=== PATIENT | female | born 1995 | race Caucasian/White ===

== ENCOUNTER → 2017-12-19 11:58 | Outpatient (CLI) | payer OTHER, SELFPAY ==
[2017-12-19 14:38] LABS: Chlamydia Trachomatis by PCR Negative (Negative); Neisserai gonorrhoeae by PCR Negative (Negative); Probe Check PASS; Sample Adequacy Control PASS; Specimen Processing Control PASS
[2017-12-25 14:38] LABS: HPV Reflexed? NOT INDICATED
== END ==
PROVIDERS: Visit Provider Obstetrics & Gynecology
DX: Z12.72 Encounter for screening for malignant neoplasm of vagina (principal); Z11.3 Encounter for screening for infections with a predominantly sexual mode of transmission
CPT/HCPCS: 87491; 87591; 88175; G0145

== ENCOUNTER 2020-06-17 15:53 | Outpatient (RCR) | payer MEDICARE, MEDICAID, SELFPAY ==
[2016-10-24 06:10] VITALS: BMI 26.1
== END 2020-08-10 23:59 ==
LOC: IMMUN 15:53
PROVIDERS: PCP Family Medicine; Referring Provider Family Medicine; Visit Provider Family Medicine
DX: Z23 Encounter for immunization (principal)
CPT/HCPCS: 0001A; 0002A; 91300

== ENCOUNTER 2022-09-09 11:55 | Emergency (ER) | payer OTHER, SELFPAY ==
[2022-09-09 11:57] VITALS: BP 121/77; PULSE 67; RESP 16; TEMP 36.6; O2SAT 100; BMI 25.4
--- NOTE | 2022-09-09 12:18 | ED.VIS.CHEST ---
HPI <LUZ Turk - Last Filed: 09/09/22 21:00> History of Present Illness Chief Complaint: Chest Other Narrative Narrative: Patient presenting today with pain in her left armpit that she has had for the past year intermittently. She describes it as a dull ache that is not worsened with exertion, she has not found anything that makes it worse/better. She reports that this morning she noticed that the pain was worse and had pain in her left shoulder and wanted to come in to be evaluated. She also reports intermittent epigastric pain for the past few months but is not having that now. She reports feeling slightly nauseous and shaky this morning but that has also passed. She denies a PMH of any chronic health conditions. She denies a history of blood clots, recent surgery/procedures, recent travel, recent immobilization. She is on oral control. She denies any shortness of breath. PFSH <LUZ Turk - Last Filed: 09/09/22 21:00> PFSH Medical History no medical history Home Medications Control 1 tab PO DAILY 10/24/16 [History Last Taken Unknown] Allergy/AdvReac Type Severity Reaction Status Date / Time No Known Allergies Allergy Verified 09/09/22 11:57 Surgical History no surgical history Social History Smoking Status: Never smoker ROS <LUZ Turk - Last Filed: 09/09/22 21:00> ROS ED Constitutional Constitutional ED: Denies chills, fever(s) or sweats Cardiovascular Cardiovascular: Denies chest pain or palpitations Respiratory/Chest Respiratory/Chest: Denies cough or dyspnea Gastrointestinal Gastrointestinal: Denies abdominal pain, nausea or vomiting Musculoskeletal Musculoskeletal: Reports arthralgias and myalgias Integumentary Denies abscess, Abrasions or rash Neurologic Neurologic: Denies paresthesias or weakness EXAM <LUZ Turk - Last Filed: 09/09/22 21:00> Physical Exam Const Vital Signs: 09/09/22 11:57 09/09/22 11:56 09/09/22 13:21 Temperature 97.8 F Temperature Source Temporal Pulse Rate 67 76 Respiratory Rate 16 16 Respiratory Effort Normal Non-Labored Respiratory Pattern Normal Blood Pressure 121/77 H 113/65 Blood Pressure Mean 91 81 Pulse Ox 100 100 Oxygen Delivery Method Room Air Room Air Positive well nourished, well developed and no apparent distress General Appearance ED: well developed HEENT Reports normocephalic and head/scalp atraumatic Mouth ED: Yes moist mucous membranes normal Eyes PERRL and EOMs intact bilaterally Neck full ROM and supple Chest Wall inspection of chest normal Chest Narrative: Palpation of left sided chest tender. Resp normal respiratory effort and clear to auscultation bilaterally Cardio regular rate and regular rhythm GI soft to palpation, non-tender, non-distended and no masses Back/Spine normal ROM and normal to inspection Extremity normal to inspection and full ROM Extremity Narrative: Pain to palpation to the left axilla. Neuro oriented x3, CN's II-XII intact bilaterally, moves all extremities, no focal motor deficits and no sensory deficits noted Sensorium / Orientation: awake and alert Psych mental status grossly normal and thought process normal Skin no rashes or lesions noted and no wounds <Dr. Franics Irwin MD - Last Filed: 09/09/22 15:06> Physical Exam Const Vital Signs: 09/09/22 11:57 09/09/22 11:56 09/09/22 13:21 Temperature 97.8 F Temperature Source Temporal Pulse Rate 67 76 Respiratory Rate 16 16 Respiratory Effort Normal Non-Labored Respiratory Pattern Normal Blood Pressure 121/77 H 113/65 Blood Pressure Mean 91 81 Pulse Ox 100 100 Oxygen Delivery Method Room Air Room Air [facility] <LUZ Turk - Last Filed: 09/09/22 21:00> [facility] Narrative Medical decision making narrative: Patient presenting today with pain to her left axilla that she has had intermittently for a year. She does have pain to palpation to her chest as well as to her left axilla, consistent with costochondritis. However, chest x-ray obtained to rule out cardiopulmonary abnormality and is negative for any acute findings. She is well-appearing and in no acute distress. Vitals are unremarkable. I have encouraged her to trial anti-inflammatories for her pain and to follow-up with her PCP. She has been given return instructions will be discharged home in stable condition. I feel that this is more of a muscular pain or costochondritis. My independent interpretation the patient's single view AP chest x-ray shows no acute process. Cardiac silhouette is normal. No pneumothorax infiltrate. I do not see any acute bony abnormality. Final reading is normal x-ray examination of the chest. Radiography Diagnostic Testing: Clinical Impression(s) from Imaging Studies Chest X-Ray 09/09/22 13:40 IMPRESSION: Normal x-ray examination of the chest. Electronically Signed: Gary Bojorquez MD at 14:05 EDT , <Dr. Francis Irwin MD - Last Filed: 09/09/22 15:06> [facility] Narrative Medical decision making narrative: My independent interpretation the patient's single view AP chest x-ray shows no acute process. Cardiac silhouette is normal. No pneumothorax infiltrate. I do not see any acute bony abnormality. Final reading is normal x-ray examination of the chest. Radiography Diagnostic Testing: Clinical Impression(s) from Imaging Studies Chest X-Ray 09/09/22 13:40 IMPRESSION: Normal x-ray examination of the chest. Electronically Signed: Gary Bojorquez MD at 14:05 EDT , Treatment and Re-Evaluation :: I have personally performed a face to face assessment of the patient and have reviewed the ABHAY Note. I performed a substantive portion of the visit including all aspects of the following. My cote findings include: History: Patient presents with a focal area of pain in her left anterior axilla that has been there for about a year. She states some weeks it is worse than others. She does do a lot of lifting. It is sore with use and pressing on it. Not short of breath coughing. No radiation. No numbness tingling. She has never felt a mass or swollen area or noted skin changes. She has lost about 90 pounds over the last year but this was intentional. The symptoms have not changed with this weight loss and they existed prior to it. Exam: No acute distress comfortable. Lungs are completely clear. No pain with a deep breath. No tachypnea. She is not hypoxic as she has 100% saturation on room air. Heart is regular. Not tachycardic. Normal distal pulses. There is no skin mass lesion but there is tenderness Medical Decision Making: This really sounds musculoskeletal. Is been there for an extended period of time. This does not at all sound like pulmonary embolus or heart disease. Her sole risk for pulmonary embolus is being on control but she is not tachypneic tachycardic or hypoxic and her symptoms are reproducible with palpation and motion and have been there for a year. I do not think she needs blood work or CTA looking for this. We did do a plain film chest x-ray to make sure we do not see any marked bony abnormality or calcified lesion. This was normal. Discharge Plan Triage Chief Complaint: Chest Other ED Midlevel Provider: Kateryna Watt ED Provider: Francis Irwin Dx/Rx/DC Orders Clinical Impression: Chest wall pain Instructions: ED Chest Wall Pain, Costochondritis Prescriptions: No Action Control 1 tab PO DAILY Primary Care Provider: Tavo Cho Referrals: Cade Osullivan DO [Med Staff - Screenplay Writer] - 3-5 Days Activity Restrictions/Additional Instructions: Please follow-up with your PCP and return for any worsening of your symptoms. Disposition Disposition: Home, Self Care Discharge Date/Time: 09/09/22 14:25
[2022-09-09 13:21] VITALS: BP 113/65; PULSE 76; RESP 16; O2SAT 100
--- NOTE | 2022-09-09 13:40 | RAD_ITS ---
STUDY: X-RAY CHEST REASON FOR EXAM: Female, 26 years old. CP TECHNIQUE: Single AP portable view of the chest. COMPARISON: None. FINDINGS: The lungs are clear and expanded. There is no demonstrated pleural abnormality. Normal size heart. Normal mediastinum and nancy. Normal visualized pulmonary arteries. Normal visualized aortic arch and descending thoracic aorta. Normal visualized thoracic spine. Normal visualized ribs, clavicles, and shoulders. There is no demonstrated abnormality of the visualized soft tissue structures of the upper abdomen. RAD/Chest 1 View (Portable) IMPRESSION: Normal x-ray examination of the chest. Electronically Signed: Gary Bojorquez MD at 14:05 EDT ,
== END 2022-09-09 14:25 | disposition home or self-care (01) ==
PROVIDERS: Emergency Provider Emergency Medicine; PCP Family Medicine; Visit Provider Emergency Medicine
DX: R07.89 Other chest pain (principal); M79.622 Pain in left upper arm; M25.512 Pain in left shoulder; Z79.3 Long term (current) use of hormonal contraceptives
CPT/HCPCS: 71045; 99282; A4216

== ENCOUNTER 2023-01-15 09:39 | Emergency (ER) | payer OTHER, SELFPAY ==
[2023-01-15 09:40] VITALS: BP 111/68; PULSE 82; RESP 16; TEMP 36.9; O2SAT 100; BMI 23.8
--- NOTE | 2023-01-15 10:04 | EKG12_ITS ---
Test Reason : SYNCOPE Blood Pressure : / mmHG Vent. Rate : 075 BPM Atrial Rate : 075 BPM P-R Int : 142 ms QRS Dur : 094 ms QT Int : 390 ms P-R-T Axes : 029 016 024 degrees QTc Int : 435 ms Normal sinus rhythm with sinus arrhythmia Low voltage QRS Incomplete right bundle branch block Borderline ECG Confirmed by BISHNU EVANS, SANJUANA ([id number]), features editor KARINA CHRIS ([id number]) on 01/23/2023 2:19:00 PM Referred By: SANTINO/JESSIE Confirmed By:SANJUANA GOETZ MD
[2023-01-15] MEDS: 0.9% Normal Saline (1000mL) 1,000 ML 999 ML IV (10:20)
[2023-01-15] MEDS: Ondansetron 4 MG/2 ML Vial IV (10:20)
[2023-01-15 10:33] LABS: Absolute Lymphocyte Count 1.44 X10^3/uL (0.83-4.51); Absolute Neutrophil Count 4.7 X10^3/uL (2.0-7.7); Basophil# 0.11 X10^3/uL; Basophil% 1.5 % (0-1); Eosinophil# 0.75 X10^3/uL; Eosinophils% 10.1 % (0-5); Hematocrit 39.8 % (37-47); Hemoglobin 13.2 g/dL (12.0-15.0); Lymphocyte # 1.44 X10^3/ul (0.83-4.51); Lymphocyte % 19.4 % (19-41); Mean Corp Hgb Conc 33.2 g/dL (32-36); Mean Corpuscular Hgb 28.9 pg (27.0-32.0); Mean Corpuscular Volume 87.3 fL (81-99); Mean Platelet Vol. 9.2 fl (6.2-12.0); Monocyte# 0.37 X10^3/uL; NRBC Flagged by Analyzer 0 % (0-5); Neutrophil # 4.74 X10^3/uL (2.7-7.7); Neutrophil % 63.6 % (47-70); Platelet Count 325 K/mm3 (150-450); RBC Distribution Width CV 12.8 % (11.6-14.6); RBC Distribution Width SD 41.1 fl (35.1-43.9); Red Blood Count 4.56 M/mm3 (4.2-5.4); White Blood Count 7.4 K/mm3 (4.4-11.0)
--- NOTE | 2023-01-15 10:40 | EX.ED.DYSGE1 ---
HPI History of Present Illness Chief Complaint: Syncope Informant: patient Narrative Narrative: Patient was at work this morning, states she started feeling lightheaded, she knelt down to the ground, and then remembers waking up on the floor supine with people standing around her. She had no prodromal symptoms other than the lightheadedness. No dyspnea, headache, chest discomfort, although that she did have some nausea subsequently, she went and ate a pop tart because she thought her blood sugar was low, she then ended up vomiting it up, she still feels a little nauseated but overall now she feels better. She did not have breakfast or any fluids this morning prior to this. She has never had this Before. She takes control and her last normal menstrual period was long ago since she does not have them while she is on the control pills, she denies any recent illness or injury, does not feel like she injured herself from falling to the floor. No recent DVT or PE, leg pain or swelling, no recent travel out of the area, hospitalization, or surgery. She takes no medications other than control pills and she is a non-smoker. PFSH PFSH Medical History no medical history no medical history Home Medications Control 1 tab PO DAILY 10/24/16 [History Last Taken Unknown] Allergy/AdvReac Type Severity Reaction Status Date / Time No Known Allergies Allergy Verified 01/15/23 09:39 Surgical History no surgical history Social History Smoking Status: Never smoker ROS ROS ED Constitutional Constitutional ED: Denies chills or fever(s) Eyes Eyes: Denies change in vision or diplopia ENT ENT ED: Denies rhinorrhea or sore throat Cardiovascular Cardiovascular: Reports as per HPI, lightheadedness and syncope; Denies chest pain or palpitations Respiratory/Chest Respiratory/Chest: Denies cough or dyspnea Gastrointestinal Gastrointestinal: Reports nausea and vomiting; Denies abdominal pain or diarrhea Genitourinary Genitourinary ED: Denies dysuria or hematuria Musculoskeletal Musculoskeletal: Denies back pain or neck pain Integumentary Denies abscess or rash Neurologic Neurologic: Denies headache(s), paresthesias or weakness Psychiatric Psychiatric: Denies anxiety or suicidal thoughts EXAM Physical Exam Const Vital Signs: 01/15/23 09:40 01/15/23 10:04 Temperature 98.4 F Temperature Source Temporal Pulse Rate 82 Respiratory Rate 16 Respiratory Effort Normal Non-Labored Respiratory Pattern Normal Blood Pressure 111/68 Blood Pressure Mean 82 Pulse Ox 100 Oxygen Delivery Method Room Air Positive well nourished and well developed General Appearance ED: well developed and NAD HEENT Reports moist mucous membranes normocephalic and atraumatic Eyes PERRL and EOMs intact bilaterally Neck full ROM and supple Resp normal respiratory effort and clear to auscultation bilaterally Cardio regular rate, regular rhythm and no murmurs GI non-tender and non-distended Auscultation: normoactive bowel sounds Palpation: soft Back/Spine no CVA tenderness General Back: other FROM Extremity normal to inspection General Extremety ED: Negative for edema, pulses abnormal or tenderness General Extremity: Negative for edema or pulses abnormal Neuro oriented x3, CN's II-XII intact bilaterally and no sensory deficits noted Sensorium / Orientation: awake and alert Motor Exam: strength 5/5 throughout Skin no rashes or lesions noted and no wounds MDM MDM MDM Narrative Medical decision making narrative: Patient was given fluid while we did a work-up for cardiac etiologies, ectopic , anemia. All of her work-up is normal. She is ambulatory without symptoms and her vital signs are normal. Her PERC score is 0, so I do not think we need to do a D-dimer to evaluate for pulmonary embolus although was considered. Patient is comfortable going home, she did eat and drink something, hypoglycemia is in the differential as is vagal reaction from unknown etiology, or mild dehydration/orthostasis. Advised to follow-up as needed and drink and eat well today. She is comfortable with that plan. Lab Data Attestation: I reviewed the patient's lab results. Labs: Laboratory Results - last 24 hr 01/15/23 10:23 WBC 7.4 RBC 4.56 Hgb 13.2 Hct 39.8 MCV 87.3 MCH 28.9 MCHC 33.2 RDW Std Deviation 41.1 RDW Coeff of Piper 12.8 Plt Count 325 MPV 9.2 Immature Gran % (Auto) 0.400 Neut % (Auto) 63.6 Lymph % (Auto) 19.4 [place] % (Auto) 5.0 Eos % (Auto) 10.1 H Baso % (Auto) 1.5 H Absolute Neuts (auto) 4.7 Absolute Lymphs (auto) 1.44 Nucleated RBC % 0 Sodium 140 Potassium 3.7 Chloride 107 Carbon Dioxide 26.0 Anion Gap 7 BUN 13 Creatinine 0.89 Estim Creat Clear Calc 81.99 Est GFR (MDRD) Af Amer 98 Est GFR (MDRD) Non-Af 81 BUN/Creatinine Ratio 14.6 Glucose 92 Calcium 8.7 Troponin I High Sens < 3 L Serum , Qual NEGATIVE Rhythm Strip Rhythm Strip: Sinus Rhythm Rate: 75 Ectopy: None EKG Initial EKG: Attestation: I personally reviewed and interpreted this EKG as follows: Interpretation: Sinus Rhythm and No Acute Injury Pattern Comments: RSR', otherwise nml EKG Discharge Plan Triage Chief Complaint: Syncope ED Provider: Ino Troy Dx/Rx/DC Orders Clinical Impression: Syncope and collapse Instructions: Causes of Syncope Prescriptions: No Action Control 1 tab PO DAILY Stand Alone Forms: ED Work / School Excuse Primary Care Provider: Tavo Cho Referrals: Tavo Cho DO [Primary Care Provider] - 5-7 Days Disposition Disposition: Home, Self Care
[2023-01-15 10:53] LABS: Anion Gap 7 (5-15); BUN 13 mg/dL (7-18); BUN/Creat Ratio 14.6 RATIO (10-20); Calcium,Total 8.7 mg/dL (8.5-10.1); Chloride 107 mmol/L (98-107); Creatinine, Serum 0.89 mg/dL (0.55-1.02); EST Glomerular Filtration Rate 81 mL/min (>60); Est Glom Filt Rate - Afr Amer 98 mL/min (>60); Estimated Creatinine Clearance 81.99 ml/min; Glucose 92 mg/dL (74-106); Potassium 3.7 mmol/L (3.5-5.1); Sodium Level 140 mmol/L (136-145); Troponin-I HS < 3 pg/mL (3.0-54.0)
[2023-01-15 11:07] LABS: Internal QC Validated? YES +Cl - CLEAR BKGD; Pregnancy, Serum, hCG Quali. NEGATIVE Negative
[2023-01-15 11:39] VITALS: RESP 16
== END 2023-01-15 12:31 | disposition home or self-care (01) ==
PROVIDERS: Emergency Provider Emergency Medicine; PCP Family Medicine; Visit Provider Emergency Medicine
DX: R55 Syncope and collapse (principal)
CPT/HCPCS: 80048; 84484; 84703; 85025; 93005; 96374; 99284; J7030; A4216; J2405

== ENCOUNTER → 2023-06-25 | Outpatient (CLI) | payer OTHER, SELFPAY ==
[2023-06-25 15:22] LABS: Absolute Lymphocyte Count 2.65 X10^3/uL (0.83-4.51); Basophil# 0.15 X10^3/uL; Basophil% 1.2 % (0-1); Eosinophil# 4.72 X10^3/uL; Eosinophils% 38.2 % (0-5); Hematocrit 42.5 % (37-47); Lymphocyte # 2.65 X10^3/ul (0.83-4.51); Lymphocyte % 21.5 % (19-41); Mean Corp Hgb Conc 32.9 g/dL (32-36); Mean Corpuscular Hgb 28.4 pg (27.0-32.0); Mean Corpuscular Volume 86.2 fL (81-99); Mean Platelet Vol. 9.4 fl (6.2-12.0); Monocyte# 0.78 X10^3/uL; Monocyte% 6.3 % (0-10); NRBC Flagged by Analyzer 0 % (0-5); Neutrophil # 4.01 X10^3/uL (2.7-7.7); Neutrophil % 32.5 % (47-70); POSITIVE DIFFERENTIAL YES; Platelet Count 376 K/mm3 (150-450); RBC Distribution Width CV 13.5 % (11.6-14.6); RBC Distribution Width SD 42.5 fl (35.1-43.9); Red Blood Count 4.93 M/mm3 (4.2-5.4); White Blood Count 12.4 K/mm3 (4.4-11.0)
[2023-06-25 15:44] LABS: Differential Comment SCANNED; Differential Indicated SCAN CRITERIA MET
[2023-06-25 16:13] LABS: ALB/GLOB Ratio 0.9 RATIO (0.9-2.4); AST(SGOT) 19 U/L (15-37); Alanine Aminotransfer ALT/SGPT 25 U/L (13-56); Albumin, Serum 3.5 g/dL (3.2-5.0); Alkaline Phosphatase 68 U/L (45-117); Anion Gap 5 (5-15); BUN 11 mg/dL (7-18); BUN/Creat Ratio 13.4 RATIO (10-20); Calcium,Total 8.9 mg/dL (8.5-10.1); Chloride 110 mmol/L (98-107); Creatinine, Serum 0.82 mg/dL (0.55-1.02); EST Glomerular Filtration Rate 88 mL/min (>60); Est Glom Filt Rate - Afr Amer 107 mL/min (>60); Globulin 3.7 g/dL (2.2-4.2); Glucose 95 mg/dL (74-106); Potassium 4.3 mmol/L (3.5-5.1); Protein, Total 7.2 g/dL (6.4-8.2); Sodium Level 139 mmol/L (136-145); T4 Free Direct 1.17 ng/dL (0.76-1.46); Thyroid Stim Hormone (TSH) 3.12 uIU/mL (0.358-3.74)
== END | disposition home or self-care (01) ==
PROVIDERS: PCP Family Medicine; Referring Provider Family Medicine; Visit Provider Family Medicine
DX: R42 Dizziness and giddiness (principal); R07.9 Chest pain, unspecified; R00.2 Palpitations
CPT/HCPCS: 36415; 80053; 84439; 84443; 85025; 85379

== ENCOUNTER → 2023-06-26 | Outpatient (CLI) | payer OTHER, SELFPAY ==
--- NOTE | 2023-06-26 13:09 | RAD_ITS ---
STUDY: X-RAY CHEST REASON FOR EXAM: Female, 27 years old. Chest pain. TECHNIQUE: Frontal and lateral views of the chest on 3 images. COMPARISON: 09/09/2022 FINDINGS: Mild hyperinflation. There is no demonstrated pleural abnormality. Normal size heart. Normal mediastinum and nancy. Normal visualized pulmonary arteries. Normal visualized aortic arch and descending thoracic aorta. Normal visualized thoracic spine. Normal visualized ribs, clavicles, and shoulders. No abnormality of the visualized soft tissue structures of the upper abdomen. RAD/Chest PA and Lateral IMPRESSION: Mild hyperinflation with no acute or active cardiopulmonary disease. Electronically Signed: Glenn Mercer MD at 10:18 EDT ,
[2023-06-26 16:18] LABS: Absolute Lymphocyte Count 2.27 X10^3/uL (0.83-4.51); Absolute Neutrophil Count 2.8 X10^3/uL (2.0-7.7); Basophil# 0.13 X10^3/uL; Basophil% 1.3 % (0-1); Eosinophil# 3.87 X10^3/uL; Eosinophils% 39.8 % (0-5); Hemoglobin 14.3 g/dL (12.0-15.0); Lymphocyte # 2.27 X10^3/ul (0.83-4.51); Lymphocyte % 23.3 % (19-41); Mean Corp Hgb Conc 33.3 g/dL (32-36); Mean Corpuscular Hgb 28.9 pg (27.0-32.0); Mean Platelet Vol. 9.4 fl (6.2-12.0); Monocyte# 0.64 X10^3/uL; Monocyte% 6.6 % (0-10); NRBC Flagged by Analyzer 0 % (0-5); Neutrophil % 28.8 % (47-70); POSITIVE DIFFERENTIAL YES; Platelet Count 373 K/mm3 (150-450); RBC Distribution Width CV 13.4 % (11.6-14.6); Red Blood Count 4.94 M/mm3 (4.2-5.4); White Blood Count 9.7 K/mm3 (4.4-11.0)
[2023-06-26 16:28] LABS: Vitamin B12 484 pg/mL (211-911)
[2023-06-26 16:45] LABS: CPK Total, Creatine Kinase 71 U/L (26-192); LDH 206 U/L (84-246); Troponin-I HS < 3 pg/mL (3.0-54.0)
[2023-06-26 17:04] LABS: Differential Indicated SCAN CRITERIA MET
[2023-06-26 17:05] LABS: Differential Comment SCANNED
== END | disposition home or self-care (01) ==
PROVIDERS: PCP Family Medicine; Referring Provider Family Medicine; Visit Provider Family Medicine
DX: D72.10 Eosinophilia, unspecified (principal); R07.9 Chest pain, unspecified; R06.2 Wheezing
CPT/HCPCS: 36415; 71046; 82550; 82607; 82784; 82785; 83520; 83615; 84484; 85025

== ENCOUNTER → 2023-07-10 | Outpatient (CLI) | payer OTHER, SELFPAY ==
--- NOTE | 2023-07-10 10:45 | US_ITS ---
STUDY: ABDOMINAL ULTRASOUND REASON FOR EXAM: Female, 27 years old. SPLENOMEGALY TECHNIQUE: Transabdominal ultrasound was performed with real-time and static bernard scale imaging. TECHNICAL QUALITY: Adequate. COMPARISON: None. FINDINGS: Liver: The liver measures 13.6 cm. There is normal echogenicity of the liver. The bile ducts are within normal limits. There is hepatic color flow. The direction of portal flow is hepatopetal. There is no demonstrated mass lesion. Gallbladder: Normal distended gallbladder. The gallbladder wall measures 1.2 mm. There is a negative sonographic Cowan''s sign. There is no pericholecystic fluid. There are no gallstones. Common Bile Duct (C.B.D.): The common bile duct measures 1.6 mm. Pancreas: Normal size of the head, body and tail of the pancreas. There is normal echogenicity of the pancreas. There is no demonstrated pancreatic mass or cyst. Spleen: Normal size of the spleen. The spleen measures 9.8 cm x 3.8 cm x 3.3 cm. Right Kidney: Normal size of the right kidney. The right kidney measures 10 cm x 5.4 cm x 4.2 cm. Normal renal cortex. The right cortex measures 1.2 cm. There is no demonstrated renal mass or cyst. There is no right hydronephrosis. Left Kidney: Normal size of the left kidney. The left kidney measures 11 cm x 4.8 cm x 5.1 cm. Normal renal cortex. The left cortex measures 1.3 cm. There is no demonstrated renal mass or cyst. There is no left hydronephrosis. Aorta: Unremarkable I.V.C.: The IVC is patent. There is no ascites. US/Abdomen Complete IMPRESSION: Normal abdominal ultrasound examination. Electronically Signed: Sam Minaya MD at 15:23 EDT ,
== END | disposition home or self-care (01) ==
LOC: US 10:44
PROVIDERS: PCP Family Medicine; Referring Provider Internal Medicine Medical Oncology; Visit Provider Internal Medicine Medical Oncology
DX: R16.1 Splenomegaly, not elsewhere classified (principal)
CPT/HCPCS: 76700

== ENCOUNTER → 2023-07-20 | Outpatient (CLI) | payer OTHER, SELFPAY ==
[2023-07-20 11:48] LABS: Absolute Lymphocyte Count 2.75 X10^3/uL (0.83-4.51); Absolute Neutrophil Count 4.2 X10^3/uL (2.0-7.7); Basophil# 0.11 X10^3/uL; Basophil% 1.1 % (0-1); Eosinophils% 18.5 % (0-5); Hematocrit 45.3 % (37-47); Lymphocyte # 2.75 X10^3/ul (0.83-4.51); Lymphocyte % 28.3 % (19-41); Mean Corp Hgb Conc 33.1 g/dL (32-36); Mean Corpuscular Hgb 28.4 pg (27.0-32.0); Mean Corpuscular Volume 85.8 fL (81-99); Mean Platelet Vol. 8.7 fl (6.2-12.0); Monocyte# 0.84 X10^3/uL; Monocyte% 8.6 % (0-10); NRBC Flagged by Analyzer 0 % (0-5); Neutrophil # 4.21 X10^3/uL (2.7-7.7); Neutrophil % 43.3 % (47-70); Platelet Count 396 K/mm3 (150-450); RBC Distribution Width SD 40.6 fl (35.1-43.9); Red Blood Count 5.28 M/mm3 (4.2-5.4); White Blood Count 9.7 K/mm3 (4.4-11.0)
== END | disposition home or self-care (01) ==
LOC: LAB 11:04
PROVIDERS: PCP Family Medicine; Referring Provider Internal Medicine Medical Oncology; Visit Provider Internal Medicine Medical Oncology
DX: D72.10 Eosinophilia, unspecified (principal); R16.1 Splenomegaly, not elsewhere classified
CPT/HCPCS: 36415; 82274; 85025; 87177; 87209

== ENCOUNTER → 2023-08-16 | Outpatient (CLI) | payer OTHER, SELFPAY ==
--- NOTE | 2023-08-16 12:55 | ECHOD_ITS ---
Reason For Study: CHEST PAIN Procedure This was a 2D Doppler, Color Flow transthoracic echocardiogram. Exam performed in department. Left Ventricle Normal LV size. Left ventricular systolic function is normal. The left ventricular ejection fraction is 55 %. Normal diastololic function. No regional wall motion abnormalities noted. Right Ventricle Normal right ventricle. Normal systolic function. Atria Normal left atrium. Normal right atrium. Mitral Valve Normal mitral valve. Tricuspid Valve Normal tricuspid valve. Mild tricuspid valve insufficiency. Pulmonary artery systolic pressure is 20 mmHg. Aortic Valve Normal aortic valve. Trisinus/trileaflet aortic valve. Pulmonic Valve Normal pulmonic valve. Great Vessels Normal aortic root. The pulmonary artery is normal size. Normal inferior vena cava. Pericardium/Pleural No pericardial effusion. MMode/2D Measurements & Calculations LVIDd: 4.5 cm IVSd: 0.64 cm Ao root diam: 2.8 cm LVIDs: 3.0 cm LVPWd: 0.63 cm RVDd: 2.6 cm FS: 33.2 % LAV(MOD-bp): 30.6 ml LVAd ap4: 24.8 cm2 LVAd ap2: 26.2 cm2 LAV(MOD-bp) Indexed: 18.5 ml/m2 LVLd ap4: 7.5 cm LVLd ap2: 8.6 cm LAV(MOD-sp2): 25.3 ml EDV(MOD-sp4): 69.1 ml EDV(MOD-sp2): 65.8 ml LAV(MOD-sp4): 29.9 ml EDV(sp4-el): 69.8 ml EDV(sp2-el): 67.5 ml LVAs ap4: 15.3 cm2 LVAs ap2: 14.9 cm2 LVLs ap4: 6.4 cm LVLs ap2: 7.0 cm ESV(MOD-sp4): 31.3 ml ESV(MOD-sp2): 26.5 ml ESV(sp4-el): 30.7 ml ESV(sp2-el): 27.0 ml EF(MOD-sp4): 54.7 % EF(MOD-sp2): 59.8 % EF(sp4-el): 55.9 % SV(MOD-sp4): 37.8 ml SV(MOD-sp2): 39.3 ml SV(sp4-el): 39.0 ml LA dimension(2D): 2.5 cm LA A4 area: 12.7 cm2 RA A4 area: 12.0 cm2 TAPSE: 2.6 cm Time Measurements MV dec time: 0.25 sec Doppler Measurements & Calculations MV E max ran: 83.4 cm/sec Lat Peak E' Ran: 16.4 cm/sec Med Peak E' Ran: 14.9 cm/sec MV A max ran: 48.0 cm/sec E/E' lat: 5.1 E/E' med: 5.6 MV E/A: 1.7 MV V2 max: 85.7 cm/sec MV P1/2t max ran: 81.6 cm/sec Ao V2 max: 96.8 cm/sec MV max P.9 mmHg MV P1/2t: 75.1 msec Ao max P.8 mmHg MV V2 mean: 47.5 cm/sec MV dec slope: 318.3 cm/sec2 Ao V2 mean: 75.4 cm/sec MV mean P.1 mmHg Ao mean P.4 mmHg MV V2 VTI: 26.4 cm MVA(P1/2t): 2.9 cm2 Ao V2 VTI: 21.4 cm AV (velocity ratio): 0.92 LV V1 max: 91.3 cm/sec PA V2 max: 82.6 cm/sec TR max ran: 200.5 cm/sec LV V1 max P.3 mmHg PA V2 mean: 65.6 cm/sec TR max P.1 mmHg LV V1 mean P.0 mmHg LV V1 mean: 69.2 cm/sec LV V1 VTI: 19.7 cm ECHO/Echo Complete Interpretation Summary Normal LV size. Left ventricular systolic function is normal. The left ventricular ejection fraction is 55 %. Pulmonary artery systolic pressure is 20 mmHg. Ordering Physician: Tavo hCo Referring Physician: Tavo Cho Performed By: Cristel Hernandez, KRISTEN, RVT
== END | disposition home or self-care (01) ==
LOC: CVS 12:54
PROVIDERS: PCP Family Medicine; Referring Provider Family Medicine; Visit Provider Family Medicine
DX: R55 Syncope and collapse (principal); R07.9 Chest pain, unspecified
CPT/HCPCS: 93306

== ENCOUNTER 2024-04-18 18:39 | Inpatient (IN) | payer MEDICAID, SELFPAY ==
[2024-04-18] VITALS (56 sets, daily range): BP systolic 94–139; BP diastolic 55–91; PULSE 89–137; RESP 15–16; TEMP 36.5; O2SAT 84–100; BMI 34.4
[2024-04-18] MEDS: Lactated Ringers 1,000 ML 999 ML IV (18:55)
[2024-04-18 19:12] LABS: Absolute Lymphocyte Count 2.35 X10^3/uL (0.83-4.51); Absolute Neutrophil Count 11.3 X10^3/uL (2.0-7.7); Basophil# 0.06 X10^3/uL; Basophil% 0.4 % (0-1); Eosinophil# 0.12 X10^3/uL; Eosinophils% 0.8 % (0-5); Hematocrit 34.3 % (37-47); Hemoglobin 11.6 g/dL (12.0-15.0); Lymphocyte # 2.35 X10^3/ul (0.83-4.51); Lymphocyte % 15.3 % (19-41); Mean Corp Hgb Conc 33.8 g/dL (32-36); Mean Corpuscular Hgb 28.4 pg (27.0-32.0); Mean Corpuscular Volume 84.1 fL (81-99); Mean Platelet Vol. 9.5 fl (6.2-12.0); Monocyte# 1.33 X10^3/uL; Monocyte% 8.7 % (0-10); NRBC Flagged by Analyzer 0 % (0-5); Neutrophil # 11.31 X10^3/uL (2.7-7.7); Neutrophil % 73.9 % (47-70); Platelet Count 396 K/mm3 (150-450); RBC Distribution Width CV 13.7 % (11.6-14.6); Red Blood Count 4.08 M/mm3 (4.2-5.4); White Blood Count 15.3 K/mm3 (4.4-11.0)
[2024-04-18] MEDS: fentaNYL-bupivacaine (epidural) 100 ML BAG EPIDURAL (19:49)
[2024-04-18] MEDS: Lactated Ringers 1,000 ML 200 ML IV (19:54)
[2024-04-18 20:03] LABS: Syphilis Antibodies Non-reactive
[2024-04-18] MEDS: LACTATED RINGERS 500 ML 999 ML IV (20:04)
--- NOTE | 2024-04-18 21:24 | PCM.HP.OB ---
HPI - General General Date of Admission: 04/18/24 Date of Service: 04/18/24 Chief Complaint: labor HPI Narrative EMERSON DINH, is a 28 F who presents in active labor at 6 cm. Membranes intact GBS negative Maternal Data Information Final GAVIN: 04/25/24 Gestational age: 39 PFSH PFSH Medical History Palpitations Eosinophilia Anxiety Home Medications ?Medication ?Instructions ?Recorded ?Last Taken ?Type aspirin 81 mg tablet,delayed 81 mg PO DAILY 04/18/24 04/17/24 History release famotidine 20 mg tablet 20 mg PO BID PRN heartburn 04/18/24 Unknown History vit no.95-ferrous 1 tab PO DAILY 04/18/24 04/17/24 History fumarate 28 mg-folic acid 800 mcg tablet () Allergy/AdvReac Type Severity Reaction Status Date / Time No Known Allergies Allergy Verified 04/18/24 18:46 Family History Grandfather Colon cancer Diabetes Mother Hypercholesteremia Uncle Diabetes Social History household members: spouse housing: house current occupational status: employed Smoking Status: Never smoker alcohol intake: never substance use type: does not use History Elective abortions Hx Para 0 Spontaneous abortions Hx # Term Pregnancies Ectopic pregnancies Hx # Pregnancies Multiple births # of living children NST FHR Rate Baby A Baseline: 150 Variability:: Moderate Accelerations:: 15 x 15 Decelerations:: None NST Reactive:: Yes FHR Category:: Category I Uterine Activity:: q3 ROS Constitutional Constitutional: Denies fatigue, fever(s) or malaise Eyes Eyes: Denies change in vision ENT HEENT: Denies dizziness or headache(s) Cardiovascular Cardiovascular: Denies chest pain, dyspnea or lightheadedness Respiratory/Chest Respiratory/Chest: Denies cough or dyspnea Gastrointestinal Gastrointestinal: Denies change in bowel habits Genitourinary Genitourinary: Denies burning urination or genital lesions Integumentary Integumentary: Denies rash Neurologic Neurologic: Denies confusion, dizziness, headache(s), numbness or weakness Vital Signs Vital Signs Vital Signs: 04/18/24 19:30 04/18/24 19:30 04/18/24 19:31 Pulse Rate 103 H 109 H Respiratory Rate Blood Pressure 127/68 H BP Systolic 127 BP Diastolic 68 Pulse Ox 04/18/24 19:31 04/18/24 19:32 04/18/24 19:32 Pulse Rate 109 H Respiratory Rate Blood Pressure BP Systolic BP Diastolic Pulse Ox 100 93 04/18/24 19:36 04/18/24 19:36 04/18/24 19:36 Pulse Rate 89 Respiratory Rate Blood Pressure 130/88 H BP Systolic 130 BP Diastolic 88 Pulse Ox 100 04/18/24 19:36 04/18/24 19:40 04/18/24 19:40 Pulse Rate 90 Respiratory Rate 15 Blood Pressure 135/76 H BP Systolic 135 BP Diastolic 76 Pulse Ox 04/18/24 19:40 04/18/24 19:41 04/18/24 19:41 Pulse Rate 92 Respiratory Rate 16 Blood Pressure BP Systolic BP Diastolic Pulse Ox 91 04/18/24 19:41 04/18/24 19:41 04/18/24 19:46 Pulse Rate 95 106 H Respiratory Rate Blood Pressure BP Systolic BP Diastolic Pulse Ox 100 04/18/24 19:46 04/18/24 19:47 04/18/24 19:47 Pulse Rate 101 H Respiratory Rate Blood Pressure 139/76 H BP Systolic 139 BP Diastolic 76 Pulse Ox 100 04/18/24 19:47 04/18/24 19:50 04/18/24 19:50 Pulse Rate 112 H Respiratory Rate 16 Blood Pressure 121/91 H BP Systolic 121 BP Diastolic 91 Pulse Ox 04/18/24 19:50 04/18/24 19:51 04/18/24 19:51 Pulse Rate 106 H Respiratory Rate 16 Blood Pressure BP Systolic BP Diastolic Pulse Ox 99 04/18/24 19:56 04/18/24 19:56 04/18/24 20:00 Pulse Rate 122 H Respiratory Rate Blood Pressure 94/56 L BP Systolic 94 BP Diastolic 56 Pulse Ox 98 04/18/24 20:00 04/18/24 20:00 04/18/24 20:01 Pulse Rate 120 H 121 H Respiratory Rate 16 Blood Pressure BP Systolic BP Diastolic Pulse Ox 04/18/24 20:01 04/18/24 20:06 04/18/24 20:06 Pulse Rate 115 H Respiratory Rate Blood Pressure BP Systolic BP Diastolic Pulse Ox 98 97 04/18/24 20:11 04/18/24 20:11 04/18/24 20:13 Pulse Rate 114 H 120 H Respiratory Rate Blood Pressure BP Systolic BP Diastolic Pulse Ox 96 04/18/24 20:13 04/18/24 20:16 04/18/24 20:16 Pulse Rate 116 H Respiratory Rate Blood Pressure BP Systolic BP Diastolic Pulse Ox 93 89 04/18/24 20:20 04/18/24 20:20 04/18/24 20:20 Pulse Rate 113 H Respiratory Rate 16 Blood Pressure 137/80 H BP Systolic 137 BP Diastolic 80 Pulse Ox 04/18/24 20:21 04/18/24 20:21 04/18/24 20:26 Pulse Rate 126 H Respiratory Rate Blood Pressure 129/69 H BP Systolic 129 BP Diastolic 69 Pulse Ox 92 04/18/24 20:26 04/18/24 20:26 04/18/24 20:26 Pulse Rate 121 H 117 H Respiratory Rate Blood Pressure BP Systolic BP Diastolic Pulse Ox 95 04/18/24 20:30 04/18/24 20:30 04/18/24 20:30 Pulse Rate 137 H Respiratory Rate Blood Pressure 122/71 H BP Systolic 122 BP Diastolic 71 Pulse Ox 94 04/18/24 20:42 04/18/24 20:42 04/18/24 20:47 Pulse Rate 93 111 H Respiratory Rate Blood Pressure BP Systolic BP Diastolic Pulse Ox 100 04/18/24 20:47 04/18/24 20:52 04/18/24 20:52 Pulse Rate 105 H Respiratory Rate Blood Pressure BP Systolic BP Diastolic Pulse Ox 100 100 04/18/24 20:55 04/18/24 20:55 Pulse Rate 121 H Respiratory Rate Blood Pressure BP Systolic BP Diastolic Pulse Ox 84 Weight Weight: 90.9 kg Body Mass Index (BMI) 34.4 Physical Exam Const alert and no apparent distress General Appearance: cooperative HEENT normocephalic Resp normal respiratory effort Cardio regular rate GI soft to palpation GI Narrative: gravid, nontender, appropriate for gestational age Manual OB Exam: dilated 6cm Extremity no calf tenderness General Extremity: edema Skin no wounds Rashes: No rashes noted Psych activity/motor behavior normal Labs Labs Labs: Blood Type A POSITIVE Antibody Screen NEGATIVE Hct 34.3 % (37-47) L Hgb 11.6 g/dL (12.0-15.0) L Syphilis Total Ab Non-reactive Miscellaneous Test Assessment & Plan (1) Normal labor: (2) 39 weeks gestation of : PLAN: Plan Epidural PRN AROM
[2024-04-18] MEDS: Oxytocin 15 Units/NS 250ml 15 UNITS/250 ML IV.SOLN 83 UNITS IV (21:51)
[2024-04-18] MEDS: Oxytocin 10 UNITS/ML Vial IM (21:51)
--- NOTE | 2024-04-18 22:08 | EX.PCM.OBVAG ---
Assessment & Plan (1) (spontaneous vaginal delivery): (2) Meconium in amniotic fluid: Maternal Data Information Final GAVIN: 04/25/24 Gestational age: 39 Vaginal Delivery Maternal Presentation Maternal Presentation: Active Labor Maternal Presentation: Present in active labor at 6 cm. Membranes intact Vaginal Delivery Information Procedure Performed: Spontaneous Vaginal Delivery Surgeon/Practitioner: Veronica Watts Date of Procedure: 04/18/24 Pre-Procedure Diagnosis: active labor Post-Procedure Diagnosis: Type of anesthesia: Epidural Estimated Blood Loss: 150 cc Time of Delivery: 21:47 Findings Description of procedure: Patient presented in active labor at 6 cm. Progressed to complete while sitting for her epidural. AROM for meconium fluid. Pushed for approximately 45 minutes to delivery OA. The anterior and posterior shoulders followed quickly. The infant cried upon delivery. The infant was placed on the maternal abdomen. The cord was clamped and cut at one minute. The placenta delvired with gentle traction. A second degree laceration was repaired with 2-0 vicryl. All sponge lap and and needle counts were correct. Procedure findings: Thick meconium Presentation: Vertex Amniotic Membrane Rupture Type: Artificial Amniotic Fluid Description: Thick meconium Placental Delivery Description: Spontaneous Placenta Disposition: [facility] Cord Vessel Description: 3 Vessels Cord Entanglement: None Infant A Gender: Female (1 minute): 9 (5 minute): 9 Delayed Cord Clamping: Yes Electronic Service Technician scooter mechanic: No Post Vaginal Deli Medications given after delivery: IV Pitocin and IM Pitocin Episiotomy Description: None Laceration: Midline and 2nd degree Complication Complications: No
[2024-04-19] VITALS (11 sets, daily range): BP systolic 109–118; BP diastolic 64–75; PULSE 80–113; RESP 14–16; TEMP 36.7–36.8; O2SAT 97–100
[2024-04-19] MEDS: Acetaminophen 500 MG Tablet 1000 MG PO ×3 (02:13→16:00)
--- NOTE | 2024-04-19 09:21 | PN.OBGYN_ITS ---
Subjective Subjective Doing well. Ambulating and voiding without difficulty. Mild lochia. Bottle feeding. Objective Data Objective Data Vital Signs: Vital Signs Temp Pulse Resp BP Pulse Ox O2 Del Method 98.2 F 80 16 117/69 98 Room Air 04/19/24 08:15 04/19/24 08:15 04/19/24 08:15 04/19/24 08:15 04/19/24 04:55 04/19/24 08:15 Oxygen Delivery Method Room Air Weight: 90.9 kg Body Mass Index (BMI) 34.4 Intake & Output: Intake and Output for Last 24 Hours 04/17/24 04/18/24 04/19/24 23:59 23:59 23:59 Intake Total 1890 / 1890 250 / 250 Output Total 150 / 150 450 / 450 Balance 1740 / 1740 -200 / -200 Lab / Micro Data 04/18/24 18:55 Labs: Laboratory Results - last 24 hr 04/18/24 18:55: WBC 15.3 H, RBC 4.08 L, Hgb 11.6 L, Hct 34.3 L, MCV 84.1, MCH 28.4, MCHC 33.8, RDW Std Deviation 42.0, RDW Coeff of [place] 13.7, Plt Count 396, MPV 9.5, Immature Gran % (Auto) 0.900, Neut % (Auto) 73.9 H, Lymph % (Auto) 15.3 L, [place] % (Auto) 8.7, Eos % (Auto) 0.8, Baso % (Auto) 0.4, Absolute Neuts (auto) 11.3 H, Absolute Lymphs (auto) 2.35, Nucleated RBC % 0, Syphilis Total Ab Non- reactive, Blood Type A POSITIVE, Antibody Screen NEGATIVE ROS Constitutional Constitutional: Denies headache(s) Cardiovascular Cardiovascular: Denies chest pain or dyspnea Gastrointestinal Gastrointestinal: Denies nausea or vomiting Genitourinary Genitourinary: Denies dysuria Physical Exam Const alert, oriented x3 and no apparent distress General Appearance: cooperative and comfortable Eyes PERRL and EOMs intact bilaterally Resp normal respiratory effort GI soft to palpation and non-tender Uterus Palpation: uterus fundus firm ( below umbilicus) Extremity normal to inspection and full ROM Neuro oriented x3 and CN's II-XII intact bilaterally Psych mental status grossly normal Assessment & Plan (1) (spontaneous vaginal delivery): PLAN: Plan routine care
[2024-04-19] MEDS: Ibuprofen 600 MG Tablet PO (20:02)
[2024-04-20 02:13] VITALS: BP 105/62; PULSE 82; RESP 16; TEMP 36.8; O2SAT 98
[2024-04-20] MEDS: Ibuprofen 600 MG Tablet PO (06:23)
--- NOTE | 2024-04-20 08:27 | PCM.PN.OB ---
Subjective Subjective Doing well. Ambulating and voiding without difficulty. Mild lochia. Breast feeding. Objective Data Objective Data Vital Signs: Vital Signs Temp Pulse Resp BP Pulse Ox O2 Del Method 98.2 F 82 16 105/62 98 Room Air 04/20/24 02:13 04/20/24 02:13 04/20/24 02:13 04/20/24 02:13 04/20/24 02:13 04/20/24 02:13 Oxygen Delivery Method Room Air Weight: 90.9 kg Body Mass Index (BMI) 34.4 Intake & Output: Intake and Output for Last 24 Hours 04/18/24 04/19/24 04/20/24 23:59 23:59 23:59 Intake Total 1890 / 1890 250 / 250 Output Total 150 / 150 450 / 450 Balance 1740 / 1740 -200 / -200 Lab / Micro Data 04/18/24 18:55 ROS Constitutional Constitutional: Denies headache(s) Cardiovascular Cardiovascular: Denies chest pain or dyspnea Gastrointestinal Gastrointestinal: Denies nausea or vomiting Genitourinary Genitourinary: Denies dysuria Physical Exam Const alert, oriented x3 and no apparent distress General Appearance: cooperative and comfortable Eyes PERRL and EOMs intact bilaterally Resp normal respiratory effort GI soft to palpation and non-tender Uterus Palpation: uterus fundus firm ( below umbilicus) Extremity normal to inspection and full ROM Neuro oriented x3 and CN's II-XII intact bilaterally Psych mental status grossly normal Assessment & Plan (1) (spontaneous vaginal delivery): PLAN: Plan Discharge home
--- NOTE | 2024-04-20 08:27 | PCM.DC.SUM ---
Providers Date of Admission: 04/18/24 Date of Discharge: 04/20/24 Primary Care Physician: Dr. Tavo Cho DO Reason For Visit: VAG Diagnosis Discharge Diagnosis (1) (spontaneous vaginal delivery): Status: Acute Code(s): O80 - Encounter for full-term uncomplicated delivery Plan Discharge home Medications at Discharge Home Medications famotidine 20 mg tablet 20 mg PO BID PRN heartburn 04/18/24 vit no.95-ferrous fumarate 28 mg-folic acid 800 mcg tablet () 1 tab PO DAILY 04/18/24 ibuprofen 600 mg tablet 600 mg PO Q6H PRN PRN Pain Score 1-10 #30 tabs 04/20/24 Hospital Course Operations None Procedures None Summary of Care Provided Minutes Spent on Discharge: 20 Hospital Course: Presented in active labor. . Routine Physical Exam Const alert and no apparent distress Narrative: Fundus firm, below umbilicus. Weight / BMI Weight Weight: 90.9 kg Body Mass Index (BMI) 34.4 ABG / Lab / Microbiology Data 04/18/24 18:55 D/C Instructions May resume sexual activity in: 6 weeks DC O2, CPAP, BIPAP Needs Home O2 Discharge instructions: No Please Follow Up With: Tabatha Thomas MD When: Follow up with our office in 1-2 and 6 weeks or as needed. [phone] Meaningful Use Info Meaningful Use Meaningful Use Diagnoses (Choose all that apply): None applicable Ischemic Stroke Statin Dosing Therapy Reference: STATIN DOSE THERAPY REFERENCE: * Patients > 75 years receive moderate or high dose statin therapy. * Patients 75 years or YOUNGER should receive HIGH intensity statin dose unless contraindicated. You will be required to document reason for non-treatment if statin daily dose does not meet guidelines. HIGH DOSE STATIN THERAPY DAILY Atorvastatin > than or = to 40 mg Rosuvastatin > than or = to 20 mg Amlodipine + Atorvastatin > than or = to 2.5/40 mg Ezetimibe + Simvastatin 10/80 mg Simvastatin 80mg Discharge Plan Admission Admit Date/Time: 04/18/24 18:39 Primary Reason for Your Visit: labor Attending Provider: Veronica Watts Primary Care Provider: Tavo Cho Discharge Orders/Prescriptions Prescriptions: New ibuprofen 600 mg Tablet 600 mg PO Q6H PRN PRN (Reason: Pain Score 1-10) Qty: 30 0RF Continued PNV cmb#95-ferrous fumarate-FA [] 28 mg iron- 800 mcg tablet 1 tab PO DAILY famotidine 20 mg tablet 20 mg PO BID PRN (Reason: heartburn) Discontinued aspirin 81 mg tablet,delayed release (DR/EC) 81 mg PO DAILY Referrals / Follow Up: Tavo Cho DO [Primary Care Provider] - Disposition Disposition (needs filled in before D/C Order can be placed): Home, Self Care
[2024-04-20 08:59] VITALS: BP 105/76; PULSE 82; RESP 16; TEMP 36.4; O2SAT 98
== END 2024-04-20 10:25 | disposition home or self-care (01) | DRG 560 ==
LOC: WPOUT 18:41 → WP 18:42
PROVIDERS: Admitting Provider Obstetrics & Gynecology; PCP Family Medicine; Referring Provider Obstetrics & Gynecology; Visit Provider Obstetrics & Gynecology
DX: O77.0 Labor and delivery complicated by meconium in amniotic fluid (principal); Z37.0 Single live birth; O70.1 Second degree perineal laceration during delivery; Z3A.39 39 weeks gestation of pregnancy
CPT/HCPCS: 59025; 59050; 85025; 86780; 86850; 86900; 86901